=== PATIENT | male | born 1950 | race African-American/Black ===

== ENCOUNTER 2018-04-17 16:44 | Inpatient (IN) | payer MEDICARE, OTHER ==
[~2018-04-17] VITALS: Ht 177.8 cm; Wt 87.9 kg
[2018-04-17] MEDS ORDERED: SODIUM CHLORIDE 0.9% 1,000 ML IV ONE (17:30)
[2018-04-17 18:11] LABS: Basophils # (auto) 0.1 uL; Basophils % (auto) 1.1 % (0.0-2.0); Eosinophils # (auto) 0.2 uL; Eosinophils % (auto) 2.4 % (0.0-7.0); Hematocrit 35.6 % (41.0-53.0); Hemoglobin 11.9 g/dL (13.5-17.5); Lymphocytes # (auto) 1.3 uL; Lymphocytes % (auto) 18.5 % (10.0-50.0); Mean Corpuscular Hemoglobin 30.4 pg (28.0-32.0); Mean Corpuscular Hgb Conc. 33.5 g/dL (32.0-36.0); Monocytes # (auto) 0.4 uL; Monocytes % (auto) 5.8 % (0.0-12.0); Neutrophils # (auto) 5.1 uL; Neutrophils % (auto) 72.2 % (37.0-80.0); Platelet Count (auto) 181 10^3/uL (140-450); Red Blood Cells 3.91 10^6/uL (4.5-5.90); Red Cell Distribution Width 12.8 % (11.8-14.3); White Blood Cell 7.1 10^3/uL (4.4-10.8)
[2018-04-17 18:33] LABS: Albumin 3.1 g/dL (3.4-5.0); BUN/Creatinine Ratio 13.1; Calcium 9.1 mg/dL (8.5-10.1); Magnesium 2.4 mg/dL (1.6-2.6); Potassium 4.6 mmol/L (3.5-5.1)
[2018-04-17 18:38] LABS: Bilirubin, Total 0.4 mg/dL (0.2-1.0); Total Protein 7.5 g/dL (6.4-8.2)
[2018-04-17 18:50] LABS: INR 0.93 (0.9-1.15); Partial Thromboplastin Time 23.2 sec (23.78-33.04)
[2018-04-17] MEDS ORDERED: ONDANSETRON HCL 4 MG/2 ML VIAL IV PRN (21:15)
[2018-04-17] MEDS ORDERED: ACETAMINOPHEN 325 MG TAB PO PRN (21:15)
[2018-04-17] MEDS ORDERED: TEMAZEPAM 15 MG CAP PO PRN (21:15)
[2018-04-17] MEDS ORDERED: DEXTROSE (50%) 50ML SYRG IV PRN (21:15)
[2018-04-17] MEDS ORDERED: DOCUSATE SOD 100 MG CAP PO PRN (21:15)
[2018-04-17] MEDS ORDERED: NITROGLYCERIN 0.4 MG SL TAB SL PRN (22:15)
[2018-04-17] MEDS ORDERED: MORPHINE SULF INJ 2 MG/ML SYRINGE 1ML IV PRN (22:15)
[2018-04-17 22:55] VITALS: BP 144/82
[2018-04-17] MEDS: ACCU-CHEK COMFORT CURVE STRIP VI SCH (23:18)
[2018-04-17] MEDS: InsuLIN REG 1unit/0.01ml Soln (100units/ml) SC SCH (23:35)
[2018-04-18 05:00] VITALS: BP 147/84
[2018-04-18 06:00] LABS: Basophils # (auto) 0.1 uL; Basophils % (auto) 1.2 % (0.0-2.0); Eosinophils # (auto) 0.3 uL; Eosinophils % (auto) 4.2 % (0.0-7.0); Hematocrit 33.4 % (41.0-53.0); Hemoglobin 11.5 g/dL (13.5-17.5); Lymphocytes # (auto) 1.7 uL; Lymphocytes % (auto) 27.7 % (10.0-50.0); Mean Corpuscular Hemoglobin 31.3 pg (28.0-32.0); Mean Corpuscular Hgb Conc. 34.5 g/dL (32.0-36.0); Mean Corpuscular Volume 90.6 fL (80.0-100.0); Monocytes # (auto) 0.4 uL; Monocytes % (auto) 6.8 % (0.0-12.0); Neutrophils # (auto) 3.7 uL; Neutrophils % (auto) 60.1 % (37.0-80.0); Nucleated Red Blood Cells % 0.1 %; Platelet Count (auto) 172 10^3/uL (140-450); Red Blood Cells 3.69 10^6/uL (4.5-5.90); Red Cell Distribution Width 13.3 % (11.8-14.3); White Blood Cell 6.1 10^3/uL (4.4-10.8)
[2018-04-18] MEDS: InsuLIN REG 1unit/0.01ml Soln (100units/ml) SC SCH ×3 (06:15→16:54)
[2018-04-18] MEDS: ACCU-CHEK COMFORT CURVE STRIP VI SCH ×4 (06:22→21:50)
[2018-04-18 06:24] LABS: Albumin 2.8 g/dL (3.4-5.0); BUN/Creatinine Ratio 14.4; Bilirubin, Total 0.3 mg/dL (0.2-1.0); Calcium 8.1 mg/dL (8.5-10.1); Potassium 3.9 mmol/L (3.5-5.1); Total Protein 6.6 g/dL (6.4-8.2)
[2018-04-18 09:00] VITALS: BP 144/79
[2018-04-18] MEDS: cloNIDine HCL 0.1 MG TAB PO PRN (11:18)
[2018-04-18 13:00] VITALS: BP 183/98
[2018-04-18] MEDS ORDERED: DEXTROSE (50%) 50ML SYRG IV PRN (15:15)
[2018-04-18 16:42] VITALS: BP 113/66
[2018-04-18] MEDS: NIFEdipine ER 30 MG TAB PO SCH (16:54)
[2018-04-18] MEDS ORDERED: InsuLIN REG 1unit/0.01ml Soln (100units/ml) SC SCH ×2 (17:00→22:00)
[2018-04-18 20:32] LABS: Urine Bacteria NONE SEEN /hpf (None Seen); Urine Blood TRACE /uL (Negative); Urine Mucus FEW (None Seen); Urine Specific Gravity 1.019 (1.001-1.035); Urine WBC 2 /hpf (0 - 3)
[2018-04-18 20:38] LABS: Protein, Urine 54.6 mg/dL (0.0-11.9)
[2018-04-18] MEDS: CARVEDILOL 3.125 MG TAB PO SCH (21:50)
[2018-04-18 22:00] VITALS: BP 169/85
[2018-04-18] MEDS ORDERED: INSULIN LANTUS (GLARGINE) 1 /0.01ml (100units/ml) SC SCH (22:00)
[2018-04-19 05:00] VITALS: BP 140/79
[2018-04-19] MEDS: ACCU-CHEK COMFORT CURVE STRIP VI SCH ×4 (06:29→21:22)
[2018-04-19] MEDS: InsuLIN REG 1unit/0.01ml Soln (100units/ml) SC SCH ×3 (06:29→17:31)
[2018-04-19 07:53] LABS: Basophils # (auto) 0 uL; Basophils % (auto) 0.9 % (0.0-2.0); Eosinophils # (auto) 0.2 uL; Eosinophils % (auto) 3.3 % (0.0-7.0); Hematocrit 33.3 % (41.0-53.0); Hemoglobin 11.2 g/dL (13.5-17.5); Lymphocytes # (auto) 1.3 uL; Lymphocytes % (auto) 27.5 % (10.0-50.0); Mean Corpuscular Hemoglobin 31.1 pg (28.0-32.0); Mean Corpuscular Hgb Conc. 33.7 g/dL (32.0-36.0); Mean Corpuscular Volume 92.2 fL (80.0-100.0); Monocytes # (auto) 0.3 uL; Monocytes % (auto) 6.8 % (0.0-12.0); Neutrophils # (auto) 2.8 uL; Neutrophils % (auto) 61.5 % (37.0-80.0); Nucleated Red Blood Cells % 0.1 %; Platelet Count (auto) 162 10^3/uL (140-450); Red Blood Cells 3.62 10^6/uL (4.5-5.90); Red Cell Distribution Width 12.8 % (11.8-14.3); White Blood Cell 4.6 10^3/uL (4.4-10.8)
[2018-04-19 08:00] VITALS: BP 137/77
[2018-04-19 08:10] LABS: BUN/Creatinine Ratio 15.6; Calcium 8.1 mg/dL (8.5-10.1); Potassium 4.2 mmol/L (3.5-5.1)
[2018-04-19 09:06] VITALS: BP 138/78
[2018-04-19] MEDS ORDERED: DEXTROSE (50%) 50ML SYRG IV PRN (09:45)
[2018-04-19] MEDS: ASPirin 81 mg TAB PO SCH (10:21)
[2018-04-19] MEDS: CARVEDILOL 3.125 MG TAB PO SCH ×2 (10:21→21:22)
[2018-04-19] MEDS: NIFEdipine ER 30 MG TAB PO SCH (10:22)
[2018-04-19 13:13] VITALS: BP_SYST 122; BP_SYST 147; BP_DIAS 75; BP_DIAS 83
[2018-04-19 17:19] VITALS: BP 148/76
[2018-04-19] MEDS ORDERED: INSULIN LANTUS (GLARGINE) 1 /0.01ml (100units/ml) SC SCH (22:00)
[2018-04-19] MEDS ORDERED: InsuLIN REG 1unit/0.01ml Soln (100units/ml) SC SCH (22:00)
[2018-04-19 22:11] VITALS: BP 168/93
[2018-04-20] MEDS: cloNIDine HCL 0.1 MG TAB PO PRN (05:07)
[2018-04-20 05:08] VITALS: BP 164/87
[2018-04-20] MEDS: ACCU-CHEK COMFORT CURVE STRIP VI SCH (06:08)
[2018-04-20] MEDS: InsuLIN REG 1unit/0.01ml Soln (100units/ml) SC SCH (06:17)
[2018-04-20 07:00] LABS: Basophils # (auto) 0 uL; Basophils % (auto) 0.8 % (0.0-2.0); Eosinophils # (auto) 0.2 uL; Eosinophils % (auto) 3.4 % (0.0-7.0); Hematocrit 31.8 % (41.0-53.0); Hemoglobin 10.9 g/dL (13.5-17.5); Lymphocytes # (auto) 1.4 uL; Lymphocytes % (auto) 26.1 % (10.0-50.0); Mean Corpuscular Hemoglobin 31.4 pg (28.0-32.0); Mean Corpuscular Hgb Conc. 34.4 g/dL (32.0-36.0); Mean Corpuscular Volume 91.2 fL (80.0-100.0); Monocytes # (auto) 0.3 uL; Monocytes % (auto) 5.8 % (0.0-12.0); Neutrophils # (auto) 3.5 uL; Neutrophils % (auto) 63.9 % (37.0-80.0); Nucleated Red Blood Cells % 0.1 %; Platelet Count (auto) 168 10^3/uL (140-450); Red Blood Cells 3.48 10^6/uL (4.5-5.90); White Blood Cell 5.5 10^3/uL (4.4-10.8)
[2018-04-20 07:16] LABS: BUN/Creatinine Ratio 17.5; Calcium 8.1 mg/dL (8.5-10.1); Potassium 4.2 mmol/L (3.5-5.1)
[2018-04-20 09:00] VITALS: BP 160/90
[2018-04-20] MEDS: NIFEdipine ER 30 MG TAB PO SCH (09:05)
[2018-04-20] MEDS: CARVEDILOL 3.125 MG TAB PO SCH (09:07)
[2018-04-20] MEDS: ASPirin 81 mg TAB PO SCH (09:08)
[2018-04-20 10:17] VITALS: BP 160/90
== END 2018-04-20 11:00 | disposition home or self-care (01) | DRG 683 ==
LOC: ER 16:44 → TELE 16:45 → TELE-WESTW 22:54
PROVIDERS: ADMIT Nurse Practitioner; ATTEND Internal Medicine
PROC: 4A00X4Z Measurement of Central Nervous Electrical Activity, External Approach (ICD-10-PCS; principal; 2018-04-19)
DX: N17.0 Acute kidney failure with tubular necrosis (principal); E44.0 Moderate protein-calorie malnutrition; I13.0 Hypertensive heart and chronic kidney disease with heart failure and stage 1 through stage 4 chronic kidney disease, or unspecified chronic kidney disease; G90.8 Other disorders of autonomic nervous system; N18.3 Chronic kidney disease, stage 3 (moderate); E11.42 Type 2 diabetes mellitus with diabetic polyneuropathy; E11.22 Type 2 diabetes mellitus with diabetic chronic kidney disease; E78.5 Hyperlipidemia, unspecified; Z82.49 Family history of ischemic heart disease and other diseases of the circulatory system; Z83.3 Family history of diabetes mellitus; Z88.5 Allergy status to narcotic agent; Z91.013 Allergy to seafood; Z68.27 Body mass index [BMI] 27.0-27.9, adult
CPT/HCPCS: 36415; 70450; 71045; 76775; 80048; 80053; 81001; 82570; 82962; 83036; 83735; 83880; 84156; 84484; 85025; 85610; 85730; 93005; 93306; 93886; 94761; 95819; 96360; J1815